=== PATIENT | female | born 1980 | race Caucasian/White ===

== ENCOUNTER 2016-07-05 18:24 | Emergency (ER) | payer BC ==
[2016-07-05] MEDS ORDERED: MORPHINE 4 MG/ML SYR ONE (22:03)
[2016-07-05] MEDS ORDERED: KETOROLAC 30 MG/ML VIAL ONE (23:13)
== END 2016-07-06 02:29 | disposition home or self-care (01) ==
LOC: ER 18:24
CPT/HCPCS: 74176; 76830; 96374; 96375